=== PATIENT | male | born 1960 | race Caucasian/White ===

== ENCOUNTER → 2023-08-10 06:17 | Day surgery (SDC) | payer OTHER, SELFPAY ==
[2023-08-10 07:18] LABS: Glucose - Point of Care 105 mg/dl (70-99)
== END ==
LOC: GI 06:17
PROVIDERS: ATTENDING PHYSICIAN Specialist
DX: Z12.11 Encounter for screening for malignant neoplasm of colon (principal); Z86.010 Personal history of colon polyps; Z80.0 Family history of malignant neoplasm of digestive organs; D12.2 Benign neoplasm of ascending colon; K63.5 Polyp of colon
CPT/HCPCS: 45385; 88305; 82962

== ENCOUNTER 2025-03-10 18:49 | Inpatient (IN) | payer OTHER, MEDICARE, SELFPAY ==
[2025-03-10] VITALS (7 sets, daily range): BP systolic 138–191; BP diastolic 74–115
[2025-03-10 14:09] LABS: Hematocrit 42.1 % (39.0-52.0); Hemoglobin 13.4 g/dL (13.0-18.0); Mean Corp Hgb Conc. 31.8 g/dL (33.0-37.0); Mean Corpuscular Volume 89.2 fL (80.0-94.0); Nucleated Red Blood Cells % 0 % (-); Platelet Count 125 10^3/uL (130-400); Red Cell Dist. Width 14.0 % (11.5-14.5)
[2025-03-10 14:26] LABS: COVID-19 Antigen Negative (Negative)
[2025-03-10 14:33] LABS: ALT (SGPT) 17 U/L (0-50); AST (SGOT) 14 U/L (17-59); Albumin 3.7 g/dl (3.5-5.0); Alkaline Phosphatase 64 U/L (38-126); Blood Urea Nitrogen 68 mg/dl (9-20); Calcium 8.4 mg/dl (8.4-10.2); Carbon Dioxide 18 mmol/L (22-30); Chloride 108 mmol/L (98-107); Glucose 135 mg/dl (70-99); Lipase 173 U/L (23-300); Potassium 5.1 mmol/L (3.5-5.1); Sodium 136 mmol/L (135-145); Total Protein 6.3 g/dl (6.3-8.2); eGFR 8.08
--- NOTE | 2025-03-10 15:35 | ED.GENMED ---
History of Present Illness
<Kareem Berry PA-C - Last Filed: 03/10/25 21:22>
General
Chief Complaint: Male Genito-Urinary Symptoms
Source: patient
Time Seen by Provider: 03/10/25 15:16
History of Present Illness
History of Present Illness:
64-year-old male with past medical history of msk-dekchhz-gxwodorxe diabetes presenting to the emergency department for evaluation after he has been experiencing some right sided flank pain for the last 3 days, today the pain is overall unchanged
but continuous, no relief with a few doses of Motrin and accompanied with no urination since 7 PM last night despite normal p.o. intake to both solids and liquids. Patient notes that a couple of days prior to gi he had a mild URI which
all of the symptoms seem to be resolved now. No reported fevers, chills, rigors, urinary frequency/urgency/dysuria or hematuria, bowel changes, chest pain or shortness of breath. He denies any history of similar. No changes to medications
recently. Social history noncontributory although noted for occasional alcohol use
Past History
<Kareem Berry PA-C - Last Filed: 03/10/25 21:22>
Past History
ED Past Medical History: NIDDM and Other (Kidney stone)
ED Past Surgical History: Other (hernia repair)
Social History
Tobacco: Non-smoker
Alcohol: Occasional
Drug: None
Personal:
Living: with family
Review of Systems
<Kareem Berry PA-C - Last Filed: 03/10/25 21:22>
Review of Systems
All Other Systems: ROS reviewed and negative except as documented in HPI and ROS
Phy Exam
<Kareem Berry PA-C - Last Filed: 03/10/25 21:22>
Physical Exam
Physical Exam:
GENERAL: Alert , in no apparent distress
HEAD: Normocephalic atraumatic
EYE: clear conjunctiva
NECK: Supple
ENT: o/p clr, mmm.
CARDIAC: Regular rate and rhythm .
LUNGS: Clear breath sounds bilaterally, no acute respiratory distress, no wheezes/rales/rhonchi
ABDOMEN: Soft, without focal tenderness, no r/g, no cvat. no suprapubic ttp or fullness
NEUROLOGICAL: Alert and oriented
SKIN: Warm and dry, skin intact.
MUSCULOSKELETAL: No edema, well perfused.
PSYCH: Normal and appropriate interaction.
Scores
<Kareem Berry PA-C - Last Filed: 03/10/25 21:22>
Heart Failure Risk
Heart Failure Risk Score: Not Applicable
Heart Score for Chest Pain Patients
STEMI patient?: Not applicable
Withdrawal Assessment of Alcohol
Withdrawal Assessment Completed?: Not applicable
Course
<Kareem Berry PA-C - Last Filed: 03/10/25 21:22>
Orders/Labs/Results
Orders:
Orders
03/10/25 13:48
COVID-19 Antigen Urgent
Source: Nasal Swab
Complete Blood Count/With Diff Urgent
Comprehensive Metabolic Panel Urgent
Creatine Phosphokinase Urgent
Comment: ADD ON
Lipase Urgent
Influenza A+B Rapid Molecular Urgent
PAUL Source: Nasal Swab
Specimen Description:
03/10/25 15:33
Urinalysis Reflex To Culture Urgent
0.9% Sodium Chloride 1000 ml [Nss] 1,000 ml IV BOLUS
US Kidneys [US Renal Only W/O Bladder] Urgent
Comment:
Reason For Exam: renal failure
03/10/25 15:34
Add On- LAB Urgent
Tests Added?: cpk
Electrocardiogram (*1) Urgent
Reason for Study: Other
Other Reason for Exam: renal failure
EKG- Treatment ONCE
CR Chest - 2 Views Urgent
Comment:
Reason For Exam: recent URI, renal failure
03/10/25 17:34
Urine - Eosinophils [Body Fluid for Eosinophils] Urgent
Fluid Source: Urine
Urine Creatinine Urgent
Urine Sodium Urgent
03/10/25 17:55
NEPHROLOGY CONSULT Urgent
Consulting Provider: Madonna Diego
Was physician already notified: Yes
Bosch Catheter [Catheter- Indwelling] As Directed
Reason for insertion: Acute Kidney Injury
Discontinue Date/Time: 03/13/25 0600
Intake/ Output As Directed
Frequency: Per unit guidelines
Comment: strict intake and output monitoring
Weight As Directed
Frequency: Daily
03/10/25 17:56
Add On- LAB Urgent
Tests Added?: CK
Admit/Transfer Patient As Directed
Co-Sign Provider:
Level of Care: Inpatient admission
Assign to:: IMU- Intermediate Care
Physician / Group: chong kebede
Diagnosis: BRITTANY,Anuria
Reason for Hospitalization: BRITTANY,Anuria
Expected length of stay greater than two midnights?: Yes
ELOS- Estimated Length of Stay in days: 3
I certify the patient meets the requirements for IP care: Yes
03/10/25 17:57
PRN Pain Medication Management As Directed
May give lesser potent ordered pain med per pt: Yes
preference::
Protocol:: Medication orders for pain may be administered in a
manner that supports deferring to patient preference
when the pt is:
- Requesting an ordered lesser potent pain medication.
Least to most potent pain medications are defined
as: acetaminophen < NSAID < tramadol < opioids
(morphine, oxycodone, hydromorphone).
- Requesting a lesser dose of the same medication IF
ORDERED.
- Requesting a less intrusive route of administration
if both routes are prescribed by the provider (PO <
IV).
03/10/25 17:58
Code Status As Directed
Resuscitation Status: Full Code
03/10/25 18:00
Abdomen/Pelvis wo Contrast CT [CT Abd/pelvis Wo Iv Cont] Urgent
Comment: without oral and PO contrast
Reason For Exam: right flank pain
0.45% Sodium Chloride 1000 ml [0.45%NaCl] 1,000 ml Sodium Bicarbonate 75 meq IV 80 mls/hr
03/10/25 18:07
PRN Pain Medication Management As Directed
May give lesser potent ordered pain med per pt: Yes
preference::
Protocol:: Medication orders for pain may be administered in a
manner that supports deferring to patient preference
when the pt is:
- Requesting an ordered lesser potent pain medication.
Least to most potent pain medications are defined
as: acetaminophen < NSAID < tramadol < opioids
(morphine, oxycodone, hydromorphone).
- Requesting a lesser dose of the same medication IF
ORDERED.
- Requesting a less intrusive route of administration
if both routes are prescribed by the provider (PO <
IV).
03/10/25 23:00
BMP [Basic Metabolic Panel] Routine
03/13/25 11:00
DC Protocol for Telemetry ONCE
Abnormal Lab Results
03/10/25
13:48
MCHC 31.8 L g/dL
(33.0-37.0)
Plt Count 125 L 10^3/uL
(130-400)
Abs Immat Gran (auto) 0.1 H 10^3/uL
(0-0.05)
Absolute Lymphs (auto) 0.8 L 10^3/uL
(1.2-3.4)
Absolute Monos (auto) 0.7 H 10^3/uL
(0.1-0.6)
Immature Gran % 0.6 H %
(0-0.5)
Neutrophils % 77.9 H %
(42.2-75.2)
Lymphocytes % 10.0 L %
(20.5-51.1)
Chloride 108 H mmol/L
(98-107)
Carbon Dioxide 18 L mmol/L
(22-30)
BUN 68 H mg/dl
(9-20)
Creatinine 7.0 H* mg/dL
(0.7-1.3)
Glucose 135 H mg/dl
(70-99)
AST 14 L U/L
(17-59)
03/10/25 13:48
03/10/25 13:48
Vital Signs
Initial and Last Documented VS:
Initial Vital Signs
Temp Pulse Resp BP Pulse Ox
97.8 F 76 20 149/88 99
03/10/25 13:38 03/10/25 13:38 03/10/25 13:38 03/10/25 13:38 03/10/25 13:38
Last Documented Vital Signs
Temp Pulse Resp BP Pulse Ox
97.8 F 70 22 168/85 99
03/10/25 13:38 03/10/25 18:00 03/10/25 18:00 03/10/25 18:00 03/10/25 17:45
<Lea Bosch MD - Last Filed: 03/10/25 17:29>
Orders/Labs/Results
Orders:
Orders
03/10/25 13:48
COVID-19 Antigen Urgent
Source: Nasal Swab
Complete Blood Count/With Diff Urgent
Comprehensive Metabolic Panel Urgent
Creatine Phosphokinase Urgent
Comment: ADD ON
Lipase Urgent
Influenza A+B Rapid Molecular Urgent
PAUL Source: Nasal Swab
Specimen Description:
03/10/25 15:33
Urinalysis Reflex To Culture Urgent
0.9% Sodium Chloride 1000 ml [Nss] 1,000 ml IV BOLUS
US Kidneys [US Renal Only W/O Bladder] Urgent
Comment:
Reason For Exam: renal failure
03/10/25 15:34
Add On- LAB Urgent
Tests Added?: cpk
Electrocardiogram (*1) Urgent
Reason for Study: Other
Other Reason for Exam: renal failure
EKG- Treatment ONCE
CR Chest - 2 Views Urgent
Comment:
Reason For Exam: recent URI, renal failure
03/10/25 17:34
Urine - Eosinophils [Body Fluid for Eosinophils] Urgent
Fluid Source: Urine
Urine Creatinine Urgent
Urine Sodium Urgent
03/10/25 17:55
NEPHROLOGY CONSULT Urgent
Consulting Provider: Madonna Diego
Was physician already notified: Yes
Bosch Catheter [Catheter- Indwelling] As Directed
Reason for insertion: Acute Kidney Injury
Discontinue Date/Time: 03/13/25 0600
Intake/ Output As Directed
Frequency: Per unit guidelines
Comment: strict intake and output monitoring
Weight As Directed
Frequency: Daily
03/10/25 17:56
Add On- LAB Urgent
Tests Added?: CK
Admit/Transfer Patient As Directed
Co-Sign Provider:
Level of Care: Inpatient admission
Assign to:: IMU- Intermediate Care
Physician / Group: chong kebede
Diagnosis: BRITTANY,Anuria
Reason for Hospitalization: BRITTANY,Anuria
Expected length of stay greater than two midnights?: Yes
ELOS- Estimated Length of Stay in days: 3
I certify the patient meets the requirements for IP care: Yes
03/10/25 17:57
PRN Pain Medication Management As Directed
May give lesser potent ordered pain med per pt: Yes
preference::
Protocol:: Medication orders for pain may be administered in a
manner that supports deferring to patient preference
when the pt is:
- Requesting an ordered lesser potent pain medication.
Least to most potent pain medications are defined
as: acetaminophen < NSAID < tramadol < opioids
(morphine, oxycodone, hydromorphone).
- Requesting a lesser dose of the same medication IF
ORDERED.
- Requesting a less intrusive route of administration
if both routes are prescribed by the provider (PO <
IV).
03/10/25 17:58
Code Status As Directed
Resuscitation Status: Full Code
03/10/25 18:00
Abdomen/Pelvis wo Contrast CT [CT Abd/pelvis Wo Iv Cont] Urgent
Comment: without oral and PO contrast
Reason For Exam: right flank pain
0.45% Sodium Chloride 1000 ml [0.45%NaCl] 1,000 ml Sodium Bicarbonate 75 meq IV 80 mls/hr
03/10/25 18:07
PRN Pain Medication Management As Directed
May give lesser potent ordered pain med per pt: Yes
preference::
Protocol:: Medication orders for pain may be administered in a
manner that supports deferring to patient preference
when the pt is:
- Requesting an ordered lesser potent pain medication.
Least to most potent pain medications are defined
as: acetaminophen < NSAID < tramadol < opioids
(morphine, oxycodone, hydromorphone).
- Requesting a lesser dose of the same medication IF
ORDERED.
- Requesting a less intrusive route of administration
if both routes are prescribed by the provider (PO <
IV).
03/10/25 23:00
BMP [Basic Metabolic Panel] Routine
03/13/25 11:00
DC Protocol for Telemetry ONCE
Abnormal Lab Results
03/10/25
13:48
MCHC 31.8 L g/dL
(33.0-37.0)
Plt Count 125 L 10^3/uL
(130-400)
Abs Immat Gran (auto) 0.1 H 10^3/uL
(0-0.05)
Absolute Lymphs (auto) 0.8 L 10^3/uL
(1.2-3.4)
Absolute Monos (auto) 0.7 H 10^3/uL
(0.1-0.6)
Immature Gran % 0.6 H %
(0-0.5)
Neutrophils % 77.9 H %
(42.2-75.2)
Lymphocytes % 10.0 L %
(20.5-51.1)
Chloride 108 H mmol/L
(98-107)
Carbon Dioxide 18 L mmol/L
(22-30)
BUN 68 H mg/dl
(9-20)
Creatinine 7.0 H* mg/dL
(0.7-1.3)
Glucose 135 H mg/dl
(70-99)
AST 14 L U/L
(17-59)
03/10/25 13:48
03/10/25 13:48
Vital Signs
Initial and Last Documented VS:
Initial Vital Signs
Temp Pulse Resp BP Pulse Ox
97.8 F 76 20 149/88 99
03/10/25 13:38 03/10/25 13:38 03/10/25 13:38 03/10/25 13:38 03/10/25 13:38
Last Documented Vital Signs
Temp Pulse Resp BP Pulse Ox
97.8 F 70 22 168/85 99
03/10/25 13:38 03/10/25 18:00 03/10/25 18:00 03/10/25 18:00 03/10/25 17:45
<Kareem Berry PA-C - Last Filed: 03/10/25 21:22>
MDM/Problems Addressed
Differential Diagnosis Includes:
Urinary Retention
UTI
Prostatitis
BRITTANY
Viral syndrome
Nephritis
Obstructive uropathy/kidney stone
Medication side-effects
MDM/Problems Addressed:
64-year-old male presenting to the ER for evaluation of right sided flank pain and decreased urinary output since 7 PM last night despite normal p.o. intake. Labs were drawn on arrival with the hematology being unremarkable however patient's
chemistry significantly abnormal with a BUN of 68 and a creatinine of 7. Bicarb 18 which is likely from the acute uremia. Patient is overall very well-appearing and in no acute distress. Given his reported pain I do have a considerable concern
for obstructive uropathy. Bedside bladder scan done multiple times shows 0 mL of urine within the urinary bladder. Will order stat ultrasound of the kidneys to assess for hydronephrosis. Additional labs ordered. Plan for admission.
Chronic conditions affecting care: DM
<Kareem Berry PA-C - Last Filed: 03/10/25 21:22>
*Radiology
Radiology exam reviewed: radiology read reviewed
*Pulse Oximetry
SaO2: 99
Oxygen Mode of Delivery: Room air
Patient hypoxic: no
*Critical Care Note
Total Time (30-74mins, 75-104mins- exclusive of procedures): Not Applicable
Data Reviewed
Review of Other/Old Records Reveals: Labs and Records
<Kareem Berry PA-C - Last Filed: 03/10/25 21:22>
Patient Management
Discussion with other providers: Hospitalist and Clinical Education Consultant
Escalation/DeEscalation of care consider admission/obs:
Hospitalist team accepts for admission. Nephrology team aware.
ED Attending Note
<Kareem Berry PA-C - Last Filed: 03/10/25 21:22>
-
Portions of this chart may have been created with voice recognition software.� Occasional wrong word or��sound alike� substitutions may have occurred due to the inherent limitations of voice recognition software.
<Lea Bosch MD - Last Filed: 03/10/25 17:29>
ED Attending Note
Patient seen and examined by attending physician: Yes
I performed the substantive portion of visit, reviewed & personally made and approve the management plan that is documented in note by myself or TREMAYNE.: Yes
ED Attending Note:
64-year-old male with complaints of pain in the right flank radiating to the right lower quadrant on and off and 'waves' for the last 3 days. He also notes that he has had decreased urination and in fact has not urinated since 7 PM last night. He
is still tolerating eating and drinking without nausea, vomiting, fever, chills, chest pain, shortness of breath, dizziness. He denies heavy nonsteroidal use, or other potential toxins. He has been on his fark [employer] for at least 2 years. He does
note that he has been drinking copious amounts of green tea lately. He denies dysuria, hematuria. Patient noted to be in new onset renal failure, questionable medication effect versus other etiology. No hydronephrosis noted, no obstructing stone
noted on ultrasound. Bladder scan does not result in urine output. IV fluids initiated, renal consult, admission to hospitalist, close monitoring.
Discharge Plan
Departure
Patient Disposition: Admit
Date of Disposition: 03/10/25
Time of Disposition: 17:23
Presentation/result/management discussed w/ accepting MD/DO: Hospitalist
Discharge Problem:
Acute renal failure
Interventions
Interventions:
*Risk Screen - Suicide Last Done: 03/10/25 13:38
*General Assessment Last Done: 03/10/25 13:38
*Neglect/Abuse Screening Last Done: 03/10/25 13:38
*ED COVID-19 Vaccine History Last Done: 03/10/25 16:00
*ED Influenza Vaccine History Last Done: 03/10/25 16:00
[facility] Fall Risk Assessment Tool Last Done: 03/10/25 16:06
BM-Zrhqls-Qzpwmyvsap Assessment Last Done: 03/10/25 16:00
ED-Male Genitourinary Assessment Last Done: 03/10/25 16:00
[2025-03-10] MEDS: NSS 1000 IV (16:10)
--- NOTE | 2025-03-10 18:01 | HPS.HSE ---
Family Physician
-
Family Physician: Vaughn Eduardo
Chief Complaint
-
Right flank pain
History of Present Illness
64-year-old male with pmhx of pac-qmrzbkf-claxswhca diabetes mellitus, nephrolithiasis came to the hospital with right-sided flank pain and feeling fatigued from past few days. Per patient, he started with cold-like symptoms few days ago and also
had right-sided flank pain and has been taking ibuprofen intermittently. He is also on farxIGA which he reported he is taking for his diabetes for at least past 2 years. Started yesterday 7 PM, he started noted that he he has not urinated since
then despite taking normal p.o. intake. Denies any dysuria, urgency, hematuria. Upon labs in the ED patient creatinine significantly elevated. Currently he denies any chest pain, shortness of breath. Denies any nausea, vomiting.
Medical History
Past Medical History
Past Medical History: Reports NIDDM and Other (Nephrolithiasis)
Past Surgical History: Reports Other (Hernia repair)
Social History
Tobacco: Non-smoker
Alcohol: Occasional
Family History
Family History: Not pertinent
Allergies / Home Medications
Allergies reflects when Allergies were last updated in [facility].
Home Medications with original date entered in [facility]
Allergy/Medication List:
Allergies
Allergy/AdvReac Type Severity Reaction Status Date / Time
No Known Allergies Allergy Verified 03/10/25 13:43
Home Medications
aspirin 81 mg tablet,delayed release 81 mg PO 03/10/25
cholecalciferol (vitamin D3) 25 mcg (1,000 unit) tablet (Vitamin D3) 25 mcg PO DAILY 03/10/25
dapagliflozin propanediol 5 mg tablet (Farxiga) 5 mg PO DAILY 03/10/25
ibuprofen 400 mg tablet 400 mg PO DAILYPRN PRN mild pain 03/10/25
vitamin E 268 mg (400 unit) capsule 268 mg PO DAILY 03/10/25
Review of Systems
-
History Source: Patient
A 12 point ROS was completed and negative except as noted: Yes
: Reports Flank Pain
Physical Exam
Vital Signs
Vital Signs
Temp Pulse Resp BP Pulse Ox
97.8 F 67 19 153/74 99
03/10/25 13:38 03/10/25 17:30 03/10/25 17:30 03/10/25 17:14 03/10/25 17:30
Physical Exam
General: No Apparent Distress and Comfortable
HEENT: NormoCephalic and Anicteric
Respiratory: Clear and Non Labored Respirations; No Wheezes
Cardiac: S1/S2 and Regular Rhythm
Breast: Deferred by me
GI: Soft, Non Tender and Non Distended
Genito-urinary: Other (right flank pain)
Musculoskeletal: No Edema
Neuro: Awake, Alert, Oriented and AO x 3
Psych: Calm and Intact Judgment/Insight
Laboratory Results
-
03/10/25 13:48
03/10/25 13:48
Laboratory Results
Total Bilirubin 0.4 mg/dl (0.2-1.3) 03/10/25 13:48
AST 14 U/L (17-59) L 03/10/25 13:48
ALT 17 U/L (0-50) 03/10/25 13:48
Alkaline Phosphatase 64 U/L (38-126) 03/10/25 13:48
Lipase 173 U/L (23-300) 03/10/25 13:48
Data Reviewed
-
Ultrasound: Report Reviewed by me, Discussed with Patient and Discussed with Family
Lab Data: Labs Reviewed by me, Discussed with Physician, Discussed with Patient and Discussed with Family
Impression/Plan
-
Acute kidney injury, unclear reason as could be medication related from farxiga and ibuprofen, recent URI
Admission creatinine 7
Metabolic acidosis secondary to acute kidney injury
Unknown baseline if has CKD
Discussed with nephrology, start 0.45 saline with bicarb
Nephrology consulted
Administer Bosch catheter
UA with urine culture, urine lites, urine eos
Admit to IMU
Check CT abdomen/pelvis non con given pain
Renal ultrasound with small right nephrolithiasis, intrarenal
History of diabetes mellitus
Hold Farxiga
A1c, Accu-Chek, sliding scale
Thrombocytopenia
Does appear to have history of it
Monitor
DVT prophylaxis
SCDs
Full code
Total Critical Care Time__62___ minutes. I was immediately available to the patient and staff. I personally examined, reviewed labs, diagnostic images/reports, interpretations, treatment plans, discussed patient care with other providers and
family or caregivers (if patient is unable to make decisions), entered orders as appropriate and documented the medical record.
[2025-03-10] MEDS: SODIUM BICARBONATE 1075 MEQ IV (19:21)
--- NOTE | 2025-03-10 22:41 | PTCARENOTE ---
Patient received from ED. Report received from Magali BARTON. Pt ambulated to the bed with assistance with tubing. Pt AAOx3, pleasant. A-febrile. Bosch intact, however no output noted on arrival. Pt c/o pain to urethra, PRN Tylenol administered see JUN.
NSR w/ PVCs on the monitor. Room air, 97%. 0.45% NSS with bicarb infusing @80ml/hr. Abdomen is round and distended, bowel sounds present. No edema. Pt significant other staying throughout the night. Educated on the use of call weinstein, within reach.
[2025-03-10] MEDS: TYLENOL 650 MG PO (23:09)
[2025-03-10 23:37] LABS: Glucose - Point of Care 104 mg/dl (70-99)
[2025-03-10 23:59] LABS: Blood Urea Nitrogen 74 mg/dl (9-20); Calcium 8.0 mg/dl (8.4-10.2); Carbon Dioxide 19 mmol/L (22-30); Chloride 109 mmol/L (98-107); Glucose 104 mg/dl (70-99); Potassium 5.6 mmol/L (3.5-5.1); Sodium 136 mmol/L (135-145); eGFR 6.99
[2025-03-11] VITALS (19 sets, daily range): BP systolic 134–170; BP diastolic 72–113
--- NOTE | 2025-03-11 01:01 | W.PN.UPDATE ---
Update Note
Progress Note Update
hyperkalemia
--- NOTE | 2025-03-11 01:30 | PTCARENOTE ---
Patient continues to be anuric. No output noted in the hines catheter bag. 0000 lab work, K 5.6. Dr. Diego notified via TT. SRUTHI Johnson put in order for Lokelma stat. Pt pain improved w/ dose of PRN Tylenol.
[2025-03-11] MEDS: LOKELMA 5 GRAM PO ×2 (01:47→07:38)
[2025-03-11 05:35] LABS: Hematocrit 39.6 % (39.0-52.0); Hemoglobin 12.9 g/dL (13.0-18.0); Mean Corp Hgb Conc. 32.6 g/dL (33.0-37.0); Mean Corpuscular Volume 89.6 fL (80.0-94.0); Nucleated Red Blood Cells % 0 % (-); Platelet Count 109 10^3/uL (130-400); Red Cell Dist. Width 13.5 % (11.5-14.5)
[2025-03-11 06:04] LABS: ALT (SGPT) 14 U/L (0-50); AST (SGOT) 11 U/L (17-59); Albumin 3.2 g/dl (3.5-5.0); Alkaline Phosphatase 59 U/L (38-126); Blood Urea Nitrogen 77 mg/dl (9-20); Calcium 8.1 mg/dl (8.4-10.2); Carbon Dioxide 19 mmol/L (22-30); Chloride 108 mmol/L (98-107); Glucose 103 mg/dl (70-99); Potassium 5.9 mmol/L (3.5-5.1); Sodium 136 mmol/L (135-145); Total Protein 5.7 g/dl (6.3-8.2); eGFR 6.06
--- NOTE | 2025-03-11 06:30 | PTCARENOTE ---
Patient continues to be anuric. No output from hines catheter. AM K 5.9. Dr. Diego notified via TT, SRUTHI mckeon, new orders for Lokelma. Nephrology consulted.
--- NOTE | 2025-03-11 06:57 | W.PN.UPDATE ---
Update Note
Progress Note Update
K level is 5.9 this am previously 5.6. Patient received one dose of lokelma at night, and nother dose of lokelma this am as recommended by nephrology.
[2025-03-11 07:42] LABS: Glucose - Point of Care 106 mg/dl (70-99)
[2025-03-11 08:04] LABS: Glycohemoglobin (HgbA1c) 6.8 % (4.0-5.9)
--- NOTE | 2025-03-11 08:45 | W.CON.NEPH ---
Consultation
-
Date/Time Consultation Requested: 03/11/2025 7 AM
Date/Time Consultation Performed: 03/11/2025 8 AM
Requesting Provider: Dr. العلي
Performing Provider: Dr. Arriaza
Reason for Consultation: BRITTANY
Medical History
-
Chief Complaint: anuria
History of Present Illness:
This is a 64-year-old gentleman who has diabetes mellitus type 2 on Farxiga therapy low-dose otherwise stable over time. He also has a remote history of nephrolithiasis though states it has been many many years since he has had an issue with his
stones. He does nothing special for this history of nephrolithiasis currently. Recently did have upper respiratory syndrome for a few days and developed some right sided flank pain and began taking some ibuprofen for this. On March 09 at 7 PM
he states that he urinated but then since then has not had any urine output. He came to the emergency room as a result. CT scan shows bilateral hydronephrosis with obstructive bilateral ureteral stones. Bosch catheter was placed but he has still
been an uric. Creatinine was noted to be elevated over 7 now at 8 with a potassium low rising at 5.9 with metabolic acidosis.
Past Medical History
Diabetes mellitus type 2
Nephrolithiasis
Hernia repair
Social History
Tobacco: Non-Smoker
Alcohol: Occasional
Family History
Family History: Not Pertinent
Allergies / Home Medications
Allergy/AdvReac Type Severity Reaction Status Date / Time
No Known Allergies Allergy Verified 03/10/25 13:43
�Medication �Instructions �Recorded �Confirmed �Type
aspirin 81 mg tablet,delayed 81 mg PO WETH03/10/25 03/10/25 History
release
cholecalciferol (vitamin D3) 25 25 mcg PO DAILY 03/10/25 03/10/25 History
mcg (1,000 unit) tablet (Vitamin
D3)
dapagliflozin propanediol 5 mg 5 mg PO DAILY 03/10/25 03/10/25 History
tablet (Farxiga)
ibuprofen 400 mg tablet 400 mg PO DAILYPRN PRN mild pain 03/10/25 03/10/25 History
vitamin E 268 mg (400 unit) capsule 268 mg PO DAILY 03/10/25 03/10/25 History
Review of Systems
-
Mild dysuria when he produces urine
All other systems: Negative unless noted
Physical Exam
Vital Signs
Vital Signs
Temp Pulse Resp BP Pulse Ox
98.4 F 67 20 137/74 96
03/11/25 07:00 03/11/25 04:00 03/11/25 04:00 03/11/25 04:00 03/11/25 04:00
Lab Results
WBC 7.8 10^3/uL (4.8-10.8) 03/11/25 05:21
RBC 4.42 10^6/uL (4.70-6.10) L 03/11/25 05:21
Hgb 12.9 g/dL (13.0-18.0) L 03/11/25 05:21
Hct 39.6 % (39.0-52.0) 03/11/25 05:21
Plt Count 109 10^3/uL (130-400) L 03/11/25 05:21
Sodium 136 mmol/L (135-145) 03/11/25 05:21
Potassium 5.9 mmol/L (3.5-5.1) H 03/11/25 05:21
Chloride 108 mmol/L (98-107) H 03/11/25 05:21
Carbon Dioxide 19 mmol/L (22-30) L 03/11/25 05:21
BUN 77 mg/dl (9-20) H 03/11/25 05:21
Creatinine 8.9 mg/dL (0.7-1.3) H* 03/11/25 05:21
eGFR 6.06 03/11/25 05:21
Glucose 103 mg/dl (70-99) H 03/11/25 05:21
Calcium 8.1 mg/dl (8.4-10.2) L 03/11/25 05:21
Albumin 3.2 g/dl (3.5-5.0) L 03/11/25 05:21
Baseline creatinine 2.[address] abdomen pelvis without contrast 03/10/2025
IMPRESSION:
Approximate 3 mm calculi in the proximal right and proximal left ureter is with mild bilateral renal collecting system dilatation and bilateral perinephric stranding.
Additional nonurgent findings, as detailed above.
Physical Exam
Patient is awake alert oriented and in no distress. Mood and affect were pleasant, insight and judgment were good. Pupils are equal round and reactive to light, extraocular movements are intact, sclera were anicteric. Hearing was normal, ears and
nose are intact. Oropharynx was clear. Neck was supple with trachea midline and no thyromegaly. Heart was regular rate and rhythm without rubs. Lower extremities without edema. Lungs were clear to auscultation bilaterally and with normal
excursion. Abdomen was soft, nontender, with normal active bowel sounds, and no hepatosplenomegaly. Skin was without rash and with normal turgor.
Data Reviewed
-
CT Scan: Report Reviewed by me
Medical Tests (Nuc Med, Echo etc): Image Personally Visualized and interpreted (EKG 04-02 by my reading normal sinus rhythm)
Labs: Labs Reviewed by me
Old Records: Reviewed
Assessment/Plan
-
Assessment
BRITTANY
Bilateral obstructive uropathy
Nephrolithiasis
Metabolic acidosis
Hyperkalemia
Diabetes mellitus type 2
Plan
Discussed with urology
Plan is for OR today with bilateral stenting
Manage potassium medically at this time
Okay to continue IV fluids
N.p.o.
Follow BMP
Discussed with patient and
[2025-03-11] MEDS: DILAUDID 0.5 MG IV ×2 (09:01→13:57)
[2025-03-11] MEDS: SODIUM BICARBONATE 1075 MEQ IV ×2 (09:05→22:30)
--- NOTE | 2025-03-11 09:09 | CON.MD ---
Consultation - Medical
-
see dictated note
please note- i was called about this patient and consult thus far involves review of records/speaking to [facility] and interviewing pt by phone
remote hx of stones
several day hx of flank pain
presented to pain and anuria/renal failure
ct done last pm showed bilateral ureteral stones- minimal hydro
pt's cr rising- minimal UO
plan for emergent electrolyte stabilization and OR rony for stents
risks, benefits, alternatives reviewed with pt by phone- will perform exam in pre-op holding
Consultation
-
Date/Time Consultation Requested: 03/11/25 at 815 am
Date/Time Consultation Performed: 03/11/25 at 8:20 am
Requesting Provider: Dr العلي
Performing Provider: Dr Ramirez
Reason for Consultation: stone and renal failure
[2025-03-11] MEDS: VITAMIN D3 (cholecalciferol) PO (09:49)
[2025-03-11] MEDS: ROCEPHIN 1000 MG IV (09:53)
[2025-03-11] MEDS: STERILE WATER FOR INJECTION 10 ML IV (09:53)
[2025-03-11 10:01] LABS: Urine Character Slightly Cloudy (Clear)
[2025-03-11 10:17] LABS: Urine Red Blood Cell 60-70 /HPF (0-2); Urine Squamous Cell 0-2 /LPF (Few)
[2025-03-11 10:31] LABS: Blood Urea Nitrogen 77 mg/dl (9-20); Calcium 8.2 mg/dl (8.4-10.2); Carbon Dioxide 18 mmol/L (22-30); Chloride 110 mmol/L (98-107); Glucose 96 mg/dl (70-99); Potassium 5.8 mmol/L (3.5-5.1); Sodium 135 mmol/L (135-145); eGFR 6.06
[2025-03-11 11:02] LABS: Body Fluid for Eosinophils No Eosinophils seen
--- NOTE | 2025-03-11 11:11 | W.SUR.PREOP ---
Pre-Operative Surgical Note
-
I have examined this patient prior to the performance of the scheduled procedure.
The patient's condition is unchanged from the time of the current History and
Physical and the patient is able to undergo the scheduled procedure.
again reviewed risks,benefits, alternatives and potential outcomes
--- NOTE | 2025-03-11 11:17 | PTCARENOTE ---
pt aaox3. states 5/10 pain in right flank. md made aware. pain med ordered and given. hines in place now draining pink tinge urine. reviewed plan of care with pt and family at bedside.
--- NOTE | 2025-03-11 11:20 | CM ---
I.A: Completed By IRIS Osborne. Patient speaks Malay, but is primarily speak Maldivian
Patient lives with his akhil a 2 STH with 3 STI, 14 STI. No DME, no VN/PT, No STR.
PCP: Vaughn Eduardo
Pharmacy: [facility]
Patient has transport home.
[2025-03-11 11:33] LABS: Glucose - Point of Care 87 mg/dl (70-99)
--- NOTE | 2025-03-11 12:33 | W.IMMPOSTOP ---
Surgical Immed Post Op Note
-
Primary Surgeon:
silas
Assisting Surgeon:
Pre-op Diagnosis:
bilateral ureteral obstruction/ARF
Post-op Diagnosis:
same
Procedure Performed:
cysto/bilateral retrogrades/bilateral stent placement
Anesthesia Type:
gen
Specimen / Cultures:
none
Estimated Blood Loss:
2cc
Complications:
none
Operative Findings:
on retrogrades- obstructing stone in right prox and left distal ureter
stents and hines placed
+ UO at end of case
continue hines/hand irrigation for hematuria/trend renal function
[2025-03-11 12:47] LABS: Glucose - Point of Care 82 mg/dl (70-99)
[2025-03-11 13:37] LABS: Blood Urea Nitrogen 77 mg/dl (9-20); Calcium 7.8 mg/dl (8.4-10.2); Carbon Dioxide 19 mmol/L (22-30); Chloride 107 mmol/L (98-107); Estimated Creatinine Clearance 11 ml/min; Glucose 90 mg/dl (70-99); Potassium 5.5 mmol/L (3.5-5.1); Sodium 136 mmol/L (135-145); eGFR 6.79
--- NOTE | 2025-03-11 13:45 | W.PN.HOSP.TC ---
Today's Communication/Plan
-
Monitor vital signs see plan
CT noted, discussed with urology urgently and plan for OR today for stenting
Now made some urine, urinalysis consistent with possible infection. Noted perinephric stranding on CT scan. Start ceftriaxone
Follow urine culture
repeat labs later today
lokelma
Assessment / Plan
Assessment / Plan
General: No Apparent Distress and Comfortable
HEENT: NormoCephalic and Anicteric
Respiratory: Clear and Non Labored Respirations
Cardiac: S1/S2 and Regular Rhythm
GI: Soft, Non Tender and Non Distended
Genito-urinary: Other (right flank pain),+ hines
Neuro: Awake, Alert, Oriented and AO x 3
Psych: Calm and Intact Judgment/Insight
Acute kidney injury 2/2 obstructing renal stone
Admission creatinine 7
Metabolic acidosis secondary to acute kidney injury with hyperkalemia. Status post Lokelma, insulin
Unknown baseline if has CKD
Nephrology following, on bicarb drip
CT abdomen/pelvics with renal stone. Discussed with urology. For urgent OR today for stent placement given anuria
Maintain Hines
Now with some urine output, urinalysis consistent with pyuria. Urine culture pending. Start ceftriaxone pending urine culture given perinephric stranding on imaging
Renal ultrasound with small right nephrolithiasis, intrarenal
History of diabetes mellitus
Hold Farxiga
A1c 6.8, Accu-Chek, sliding scale
Hypertension, no prior history
Hydralazine as needed, monitor
Thrombocytopenia
Does appear to have history of it
Monitor
DVT prophylaxis
SCDs
Full code
I spent a total of 52 minutes with the patient or on the floor. More than 50% of this time involved counseling and coordination of care.
Anticipated Discharge: > 48 hours
Subjective/Interval History
-
Date of Service: March 11, 2025
Some right flank pain
Objective Data
-
Labs:
Laboratory Results
03/11/25 03/11/25 03/11/25
05:21 09:33 12:59
WBC 7.8
Hgb 12.9 L
Hct 39.6
Plt Count 109 L
Sodium 136 135 136
Potassium 5.9 H 5.8 H 5.5 H
Chloride 108 H 110 H 107
Carbon Dioxide 19 L 18 L 19 L
BUN 77 H 77 H 77 H
Creatinine 8.9 H* 8.9 H* 8.1 H*
Glucose 103 H 96 90
Calcium 8.1 L 8.2 L 7.8 L
Total Bilirubin 0.5
AST 11 L
ALT 14
Alkaline Phosphatase 59
Vital Signs:
Vital Signs
Temp Pulse Resp BP Pulse Ox
97.2 F 71 18 163/83 100
03/11/25 13:17 03/11/25 13:15 03/11/25 13:15 03/11/25 13:15 03/11/25 13:15
I&O
03/10/25 03/11/25 03/12/25
06:59 06:59 06:59
Intake Total 870 / 870
Output Total 600 / 600
Balance 270 / 270
--- NOTE | 2025-03-11 14:02 | PTCARENOTE ---
pt returned from OR. pt having some bladder spams. ihnes irrigated for pink clear. pain meds given as ordered.
[2025-03-11 16:41] LABS: Glucose - Point of Care 129 mg/dl (70-99)
[2025-03-11 20:48] LABS: Blood Urea Nitrogen 76 mg/dl (9-20); Calcium 8.6 mg/dl (8.4-10.2); Carbon Dioxide 21 mmol/L (22-30); Chloride 107 mmol/L (98-107); Estimated Creatinine Clearance 14 ml/min; Glucose 130 mg/dl (70-99); Potassium 6.2 mmol/L (3.5-5.1); Sodium 137 mmol/L (135-145); eGFR 8.68
[2025-03-11] MEDS: DEXTROSE 50% SYRINGE 25 GRAMS IV (21:30)
[2025-03-11] MEDS: NOVOLIN R 0.1 UNITS IV (21:31)
[2025-03-11] MEDS: APRESOLINE 5 MG IV (21:32)
[2025-03-11] MEDS: LOKELMA 10 GRAM PO (21:39)
[2025-03-11 21:51] LABS: Glucose - Point of Care 119 mg/dl (70-99)
[2025-03-11 22:40] LABS: Glucose - Point of Care 139 mg/dl (70-99)
[2025-03-11 23:52] LABS: Glucose - Point of Care 109 mg/dl (70-99)
--- NOTE | 2025-03-11 23:58 | PTCARENOTE ---
Assumed care for patient overnight. K 6.2. Hyperkalemia protocol initiated blood sugar checked pre administration of insulin and dextrose per order see MAR. Bosch w/ blood tinged urine in the bag, hand irrigated w/o issue. Room air, 99%. NSR on the
monitor. IVF cont. Able to make needs known, call weinstein within reach.
[2025-03-12] VITALS (12 sets, daily range): BP systolic 122–165; BP diastolic 66–110; BMI 32.1
[2025-03-12 00:24] LABS: Blood Urea Nitrogen 72 mg/dl (9-20); Calcium 8.1 mg/dl (8.4-10.2); Carbon Dioxide 20 mmol/L (22-30); Chloride 109 mmol/L (98-107); Estimated Creatinine Clearance 15 ml/min; Glucose 115 mg/dl (70-99); Potassium 5.1 mmol/L (3.5-5.1); Sodium 138 mmol/L (135-145); eGFR 9.73
[2025-03-12 01:49] LABS: Glucose - Point of Care 95 mg/dl (70-99)
[2025-03-12 03:46] LABS: Glucose - Point of Care 82 mg/dl (70-99)
[2025-03-12 04:14] LABS: Hematocrit 41.2 % (39.0-52.0); Hemoglobin 13.3 g/dL (13.0-18.0); Mean Corp Hgb Conc. 32.3 g/dL (33.0-37.0); Mean Corpuscular Volume 87.3 fL (80.0-94.0); Nucleated Red Blood Cells % 0 % (-); Platelet Count 154 10^3/uL (130-400); Red Cell Dist. Width 13.5 % (11.5-14.5)
[2025-03-12 04:24] LABS: ALT (SGPT) 13 U/L (0-50); AST (SGOT) 10 U/L (17-59); Albumin 3.2 g/dl (3.5-5.0); Alkaline Phosphatase 56 U/L (38-126); Blood Urea Nitrogen 68 mg/dl (9-20); Calcium 8.4 mg/dl (8.4-10.2); Carbon Dioxide 22 mmol/L (22-30); Chloride 110 mmol/L (98-107); Estimated Creatinine Clearance 16 ml/min; Glucose 84 mg/dl (70-99); Potassium 5.1 mmol/L (3.5-5.1); Sodium 139 mmol/L (135-145); Total Protein 5.9 g/dl (6.3-8.2); eGFR 10.80
[2025-03-12] MEDS: LOKELMA 10 GRAM PO ×2 (05:28→16:26)
--- NOTE | 2025-03-12 07:03 | W.PN.URO.CBU ---
Today's Communication / Plan
-
continue stents/hines and trend cr level
Assessment / Plan
-
ARF with period of anuria
bilateral ureteral stones s/p stents
TODAY- PT AND REPORT THAT HIS PRIMARY HAD REC THAT HE SEE OUTPT NEPHROLOGY SOME TIME AGO FOR KIDEY DYSFUNCTION- BUT HE DID NOT GO- so ? what baseline renal function was
urologically- stents in place- until cr nadirs- would leave hines to maximize decompression
start flomax
eventual outpt f/u for discussion of ureteroscopy for stone removal
Diagnosis
-
Date of Service: March 12, 2025
-
Patient Diagnosis:
bilateral ureteral stones
ARF
Post Op Day:
cysto/bilateral stents 03/11
Subjective
-
pt feels better
UO increasing- but not the expected post ob diuresis
cr only down to 5
urine clearing
Objective
-
Vital Signs
Temp Pulse Resp BP Pulse Ox
97.7 F 59 17 136/85 99
03/12/25 03:26 03/12/25 06:06 03/12/25 06:06 03/12/25 06:06 03/12/25 06:06
Intake and Output
03/11/25 03/12/25 03/13/25
06:59 06:59 06:59
Intake Total 1829
Output Total 2700 / 2700
Balance -870 / -870
Intake:
IV fluids (Total) 1829
Bicarb infusion 70 / 70
Output:
Urine, Hines 2700 / 2700
Laboratory Results
03/12/25 03:35
03/12/25 03:35
Review of Systems
-
Constitutional: Fatigue
Respiratory: No Symptoms
Cardiac: No Symptoms
Abdomen/GI: No Symptoms
: Other (flora jesus)
Physical Exam
-
General - no acute distress
Abdomen - soft, non-tender
Genitalia - hines
[2025-03-12 08:36] LABS: Glucose - Point of Care 87 mg/dl (70-99)
[2025-03-12] MEDS: FLOMAX 0.4 MG PO (08:50)
[2025-03-12] MEDS: VITAMIN D3 (cholecalciferol) 25 MCG PO (08:50)
[2025-03-12] MEDS: STERILE WATER FOR INJECTION 10 ML IV (09:27)
[2025-03-12] MEDS: ROCEPHIN 1000 MG IV (09:27)
[2025-03-12 11:48] LABS: Glucose - Point of Care 102 mg/dl (70-99)
[2025-03-12] MEDS: SODIUM BICARBONATE 1075 MEQ IV (11:51)
--- NOTE | 2025-03-12 13:09 | W.PN.HOSP.TC ---
Today's Communication/Plan
-
Monitor vital signs and see plan
Monitor renal function closely
Maintain Hines
Creatinine slowly improving
Assessment / Plan
Assessment / Plan
General: No Apparent Distress and Comfortable
HEENT: NormoCephalic and Anicteric
Respiratory: Clear and Non Labored Respirations
Cardiac: S1/S2 and Regular Rhythm
GI: Soft, Non Tender and Non Distended
Genito-urinary: + hines
Neuro: Awake, Alert, Oriented and AO x 3
Psych: Calm and Intact Judgment/Insight
Acute kidney injury 2/2 obstructing renal stone
Admission creatinine 7, peaked 8's
Metabolic acidosis secondary to acute kidney injury with hyperkalemia. improving. DC further bicarb drip.
Unknown baseline if has CKD
Nephrology following
CT abdomen/pelvics with renal stone. Status post bilateral ureteral stone status post stents. Urology following
Maintain Hines
Now with some urine output, urinalysis consistent with pyuria. Urine culture pending. cw ceftriaxone pending urine culture given perinephric stranding on imaging
Renal ultrasound with small right nephrolithiasis, intrarenal
History of diabetes mellitus
Hold Farxiga
A1c 6.8, Accu-Chek, sliding scale
Hypertension, no prior history
Hydralazine as needed, monitor
If blood pressure high persistently then will start standing BP med
Thrombocytopenia
Does appear to have history of it
Monitor
DVT prophylaxis
SCDs
Full code
I spent a total of 52 minutes with the patient or on the floor. More than 50% of this time involved counseling and coordination of care.
Anticipated Discharge: 24 - 48 hours
Subjective/Interval History
-
Date of Service: March 12, 2025
Denies pain
Objective Data
-
Labs:
Laboratory Results
03/12/25
03:35
WBC 8.0
Hgb 13.3
Hct 41.2
Plt Count 154 D
Sodium 139
Potassium 5.1
Chloride 110 H
Carbon Dioxide 22
BUN 68 H
Creatinine 5.5 H*
Glucose 84
Calcium 8.4
Total Bilirubin 0.6
AST 10 L
ALT 13
Alkaline Phosphatase 56
Vital Signs:
Vital Signs
Temp Pulse Resp BP Pulse Ox
98.4 F 78 17 158/90 95
03/12/25 11:58 03/12/25 10:01 03/12/25 10:01 03/12/25 10:01 03/12/25 10:01
I&O
03/11/25 03/12/25 03/13/25
06:59 06:59 06:59
Intake Total 2790 / 2790
Output Total 2900 / 2900
Balance -110 / -110
--- NOTE | 2025-03-12 13:31 | W.PN.NEPH.PH ---
Today's Communication / Plan
-
follow BMP
Assessment/Plan
-
Assessment
BRITTANY
Bilateral obstructive uropathy
Nephrolithiasis
Metabolic acidosis
Hyperkalemia
Diabetes mellitus type 2
Plan
IV fluids
Follow BMP
Discussed with patient
-
-
Date of Service: March 12, 2025
CC / HPI / ROS
-
Chief Complaint:
BRITTANY
History of Present Illness:
BRITTANY/Cr down to 5.5
s/p bilateral ureteral stents 03/11/25
BP high
K better 5.1
Review of Systems:
no SOB/CP
Labs
-
Labs:
WBC 8.0 10^3/uL (4.8-10.8) 03/12/25 03:35
RBC 4.72 10^6/uL (4.70-6.10) 03/12/25 03:35
Hgb 13.3 g/dL (13.0-18.0) 03/12/25 03:35
Hct 41.2 % (39.0-52.0) 03/12/25 03:35
Plt Count 154 10^3/uL (130-400) D 03/12/25 03:35
Sodium 139 mmol/L (135-145) 03/12/25 03:35
Potassium 5.1 mmol/L (3.5-5.1) 03/12/25 03:35
Chloride 110 mmol/L (98-107) H 03/12/25 03:35
Carbon Dioxide 22 mmol/L (22-30) 03/12/25 03:35
BUN 68 mg/dl (9-20) H 03/12/25 03:35
Creatinine 5.5 mg/dL (0.7-1.3) H* 03/12/25 03:35
eGFR 10.80 03/12/25 03:35
Glucose 84 mg/dl (70-99) 03/12/25 03:35
Calcium 8.4 mg/dl (8.4-10.2) 03/12/25 03:35
Albumin 3.2 g/dl (3.5-5.0) L 03/12/25 03:35
Physical Exam
-
Vital Signs:
Vital Signs
Temp Pulse Resp BP Pulse Ox
98.4 F 78 17 158/90 95
03/12/25 11:58 03/12/25 10:01 03/12/25 10:01 03/12/25 10:01 03/12/25 10:01
Cardiovascular:: Regular rate and rhythm
Respiratory:: Bilateral: Coarse
Lung Excursion:: Normal
Abdomen:: Nontender and Soft
Bowel Sounds:: Normal
Extremity Edema:: None: Bilateral:
--- NOTE | 2025-03-12 15:23 | CM ---
Bosch, monitor renal function closely, Following BMP, Cr improving slowly, IV/Rocephin. Discharge POC: Anticipate home with no needs. Observe for any HH RN needs.
[2025-03-12] MEDS: LOKELMA PO (16:23)
[2025-03-12] MEDS: NSS 1000 IV (16:26)
[2025-03-12 16:46] LABS: Glucose - Point of Care 82 mg/dl (70-99)
[2025-03-12 23:00] LABS: Glucose - Point of Care 97 mg/dl (70-99)
[2025-03-13] VITALS (9 sets, daily range): BP systolic 124–168; BP diastolic 73–133; BMI 32.0
--- NOTE | 2025-03-13 00:13 | PTCARENOTE ---
assumed care of patient. pt is AAOx3, able to make needs known. VSS. 93% RA. hines intact draining karlie urine. hines order noted to remove in AM, per urology notes, 'leave hines to maximize decompression'. will leave hines in and relay in the
morning. hines causing some tenderness but manageable per patient. hines manually irrigated per order every 6 hours, no clots noted. IV fluids infusing without issues. at bedside. care ongoing.
--- NOTE | 2025-03-13 03:09 | PTCARENOTE ---
pt oxygen dropping to 70s on RA while sleeping. 2L NC placed, now 98%.
[2025-03-13] MEDS: NSS 1000 IV (05:35)
[2025-03-13] MEDS: LOKELMA 10 GRAM PO ×2 (05:35→14:52)
[2025-03-13 05:55] LABS: Hematocrit 39.6 % (39.0-52.0); Hemoglobin 12.8 g/dL (13.0-18.0); Mean Corp Hgb Conc. 32.3 g/dL (33.0-37.0); Mean Corpuscular Volume 87.0 fL (80.0-94.0); Nucleated Red Blood Cells % 0 % (-); Platelet Count 133 10^3/uL (130-400); Red Cell Dist. Width 13.6 % (11.5-14.5)
[2025-03-13 06:15] LABS: ALT (SGPT) 12 U/L (0-50); AST (SGOT) 11 U/L (17-59); Albumin 3.2 g/dl (3.5-5.0); Alkaline Phosphatase 50 U/L (38-126); Blood Urea Nitrogen 53 mg/dl (9-20); Calcium 8.2 mg/dl (8.4-10.2); Carbon Dioxide 23 mmol/L (22-30); Chloride 113 mmol/L (98-107); Estimated Creatinine Clearance 28 ml/min; Glucose 93 mg/dl (70-99); Potassium 4.9 mmol/L (3.5-5.1); Sodium 140 mmol/L (135-145); Total Protein 5.7 g/dl (6.3-8.2); eGFR 20.68
[2025-03-13 07:46] LABS: Glucose - Point of Care 98 mg/dl (70-99)
[2025-03-13] MEDS: FLOMAX 0.4 MG PO (08:00)
[2025-03-13] MEDS: VITAMIN D3 (cholecalciferol) 25 MCG PO (08:00)
--- NOTE | 2025-03-13 08:17 | W.PN.URO.CBU ---
Today's Communication / Plan
-
continue flomax
discontinue hines when cr down to around 2
outpt f/u
Assessment / Plan
-
ARF with period of anuria
bilateral ureteral stones s/p stents
slow improvement in cr level
would like hines in place to promote renal drainage- when cr down to around 2- may discontinue for voiding trial
continue flomax
have pt call dr rosen at time of discharge to arrange outpt f/u
Diagnosis
-
Date of Service: March 13, 2025
-
Patient Diagnosis:
bilateral ureteral stones
ARF
Post Op Day:
cysto/bilateral stents 03/11
Subjective
-
pt feels better
urine clear
cr down to 3
Objective
-
Vital Signs
Temp Pulse Resp BP Pulse Ox
98.2 F 84 15 166/93 94
03/13/25 07:36 03/13/25 06:06 03/13/25 06:06 03/13/25 06:06 03/13/25 06:06
Intake and Output
03/12/25 03/13/25 03/14/25
06:59 06:59 06:59
Intake Total 2790 / 2790 1460 / 1460
Output Total 2900 / 2900 2150 / 2150
Balance -110 / -110 -690 / -690
Intake:
Oral fluids 320 / 320
IV fluids (Total) 2790 / 2790 940 / 940
Bicarb infusion 70 / 70
Hines intermittent irrigation 200 / 200
Output:
Urine, Hines 2900 / 2900 2150 / 2150
Laboratory Results
03/13/25 05:43
03/13/25 05:43
Review of Systems
-
Constitutional: Fatigue
Respiratory: No Symptoms
Cardiac: No Symptoms
Abdomen/GI: No Symptoms
Physical Exam
-
General - no acute distress
--- NOTE | 2025-03-13 09:38 | PTCARENOTE ---
Patient received from night nurse. Patient resting comfortably in bed. AAO, VSS. stayed overnight. No events noted overnight. Complaints of pain and discomfort in penile area due to hines. Hines to remain in under urology determination.
No testing schedule at this time. Call weinstein in reach.
[2025-03-13] MEDS: STERILE WATER FOR INJECTION 10 ML IV (09:52)
[2025-03-13] MEDS: ROCEPHIN 1000 MG IV (09:52)
--- NOTE | 2025-03-13 11:26 | CM ---
F/U: Patient is likely to remove his Bosch so will discharge over the weekend. Patient has no VN needs nor PT. IMM completed PLAN: Home No Needs.
[2025-03-13 11:47] LABS: Glucose - Point of Care 106 mg/dl (70-99)
--- NOTE | 2025-03-13 12:43 | W.PN.NEPH.PH ---
Today's Communication / Plan
-
off IVF and follow labs
Assessment/Plan
-
Assessment
BRITTANY
CKD [id number] 2
Bilateral obstructive uropathy
Nephrolithiasis
Metabolic acidosis
Hyperkalemia
Diabetes mellitus type 2
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
Plan
cr improving to 3.2
will attempt to wean off IV fluids
hines ou t when cr at baseline per
Bp stable
Follow BMP
Discussed with patient and family in detail
-
-
Date of Service: March 13, 2025
CC / HPI / ROS
-
Chief Complaint:
BRITTANY
History of Present Illness:
BRITTANY/Cr down to3.2
s/p bilateral ureteral stents 03/11/25
BP stable
K better 4.8
Review of Systems:
no SOB/CP
feels well
Labs
-
Labs:
WBC 5.7 10^3/uL (4.8-10.8) 03/13/25 05:43
RBC 4.55 10^6/uL (4.70-6.10) L 03/13/25 05:43
Hgb 12.8 g/dL (13.0-18.0) L 03/13/25 05:43
Hct 39.6 % (39.0-52.0) 03/13/25 05:43
Plt Count 133 10^3/uL (130-400) 03/13/25 05:43
Sodium 140 mmol/L (135-145) 03/13/25 05:43
Potassium 4.9 mmol/L (3.5-5.1) 03/13/25 05:43
Chloride 113 mmol/L (98-107) H 03/13/25 05:43
Carbon Dioxide 23 mmol/L (22-30) 03/13/25 05:43
BUN 53 mg/dl (9-20) H 03/13/25 05:43
Creatinine 3.2 mg/dL (0.7-1.3) H 03/13/25 05:43
eGFR 20.68 03/13/25 05:43
Glucose 93 mg/dl (70-99) 03/13/25 05:43
Calcium 8.2 mg/dl (8.4-10.2) L 03/13/25 05:43
Albumin 3.2 g/dl (3.5-5.0) L 03/13/25 05:43
Physical Exam
-
Vital Signs:
Vital Signs
Temp Pulse Resp BP Pulse Ox
98.3 F 84 15 166/93 94
03/13/25 11:47 03/13/25 06:06 03/13/25 06:06 03/13/25 06:06 03/13/25 06:06
Cardiovascular:: Regular rate and rhythm
Respiratory:: Bilateral: CTA
Lung Excursion:: Normal
Abdomen:: Nontender and Soft
Bowel Sounds:: Normal
Extremity Edema:: None: Bilateral:
Hines Catheter: Yes
--- NOTE | 2025-03-13 13:53 | W.PN.HOSP.TC ---
Today's Communication/Plan
-
monitor vitals
See plan
Monitor renal function
Maintain Hines for now per urology
Transfer out of IMU
Assessment / Plan
Assessment / Plan
General: No Apparent Distress and Comfortable
HEENT: NormoCephalic and Anicteric
Respiratory: Clear and Non Labored Respirations
Cardiac: S1/S2 and Regular Rhythm
GI: Soft, Non Tender and Non Distended
Genito-urinary: + hnies
Neuro: Awake, Alert, Oriented and AO x 3
Psych: Calm and Intact Judgment/Insight
Acute kidney injury 2/2 obstructing renal stone
Admission creatinine 7, peaked 8's
Metabolic acidosis secondary to acute kidney injury with hyperkalemia. improving. DC further bicarb drip.
Unknown baseline if has CKD
Nephrology following
CT abdomen/pelvics with renal stone. Status post bilateral ureteral stone status post stents. Urology following
Maintain Hines; per urology discontinue Hines when creatinine around 2
Now with some urine output, urinalysis consistent with pyuria. Urine culture pending. cw ceftriaxone given perinephric stranding on imaging and recent procedure
Renal ultrasound with small right nephrolithiasis, intrarenal
History of diabetes mellitus
Hold Farxiga
A1c 6.8, Accu-Chek, sliding scale
Hypertension, no prior history
Hydralazine as needed, monitor
If blood pressure high persistently then will start standing BP med
Thrombocytopenia
Does appear to have history of it
Monitor
DVT prophylaxis
SCDs
Full code
Anticipated Discharge: 24 - 48 hours
Subjective/Interval History
-
Date of Service: March 13, 2025
Denies pain
Objective Data
-
Labs:
Laboratory Results
03/13/25
05:43
WBC 5.7
Hgb 12.8 L
Hct 39.6
Plt Count 133
Sodium 140
Potassium 4.9
Chloride 113 H
Carbon Dioxide 23
BUN 53 H
Creatinine 3.2 H
Glucose 93
Calcium 8.2 L
Total Bilirubin 0.6
AST 11 L
ALT 12
Alkaline Phosphatase 50
Vital Signs:
Vital Signs
Temp Pulse Resp BP Pulse Ox
98.3 F 84 15 166/93 94
03/13/25 11:47 03/13/25 06:06 03/13/25 06:06 03/13/25 06:06 03/13/25 06:06
I&O
03/12/25 03/13/25 03/14/25
06:59 06:59 06:59
Intake Total 2790 / 2790 1460 / 1460
Output Total 2900 / 2900 2150 / 2150
Balance -110 / -110 -690 / -690
[2025-03-13 17:40] LABS: Glucose - Point of Care 107 mg/dl (70-99)
[2025-03-13] MEDS: HEPARIN 5000 UNITS SC (20:31)
[2025-03-14] VITALS (8 sets, daily range): BP systolic 134–182; BP diastolic 84–96; BMI 31.3
--- NOTE | 2025-03-14 05:20 | PTCARENOTE ---
assumed care of patient. pt is m/s level of care. able to make needs known. VSS. 94% RA. able to walk into bathroom with standby assist. hines intact draining karlie urine. care ongoing.
[2025-03-14 05:39] LABS: Glucose - Point of Care 94 mg/dl (70-99)
[2025-03-14 05:45] LABS: Hematocrit 39.0 % (39.0-52.0); Hemoglobin 12.5 g/dL (13.0-18.0); Mean Corp Hgb Conc. 32.1 g/dL (33.0-37.0); Mean Corpuscular Volume 88.2 fL (80.0-94.0); Nucleated Red Blood Cells % 0 % (-); Platelet Count 147 10^3/uL (130-400); Red Cell Dist. Width 13.4 % (11.5-14.5)
[2025-03-14 06:26] LABS: ALT (SGPT) 12 U/L (0-50); AST (SGOT) 12 U/L (17-59); Albumin 3.3 g/dl (3.5-5.0); Alkaline Phosphatase 51 U/L (38-126); Blood Urea Nitrogen 43 mg/dl (9-20); Calcium 8.5 mg/dl (8.4-10.2); Carbon Dioxide 28 mmol/L (22-30); Chloride 109 mmol/L (98-107); Estimated Creatinine Clearance 36 ml/min; Glucose 101 mg/dl (70-99); Potassium 5.1 mmol/L (3.5-5.1); Sodium 139 mmol/L (135-145); Total Protein 5.7 g/dl (6.3-8.2); eGFR 27.82
[2025-03-14 07:27] LABS: Glucose - Point of Care 91 mg/dl (70-99)
[2025-03-14] MEDS: LOW STRENGTH ASPIRIN 81 MG PO (08:11)
[2025-03-14] MEDS: FLOMAX 0.4 MG PO (08:11)
[2025-03-14] MEDS: VITAMIN D3 (cholecalciferol) 25 MCG PO (08:11)
[2025-03-14] MEDS: HEPARIN 5000 UNITS SC ×2 (08:11→21:43)
--- NOTE | 2025-03-14 09:34 | PTCARENOTE ---
Patient received from manager shift. Patient resting comfortably in bed. WILLAO, VSMitch. stayed overnight. No events noted overnight. Complaints of pain and discomfort in penile area due to hines. Hines likely to be D/C'd pending AM lab work and
creatinine closer to 2.0. No testing schedule at this time. Call weinstein in reach.
[2025-03-14] MEDS: STERILE WATER FOR INJECTION 10 ML IV (10:45)
[2025-03-14] MEDS: ROCEPHIN 1000 MG IV (10:46)
[2025-03-14 12:10] LABS: Glucose - Point of Care 99 mg/dl (70-99)
[2025-03-14] MEDS: NORVASC 5 MG PO (12:11)
--- NOTE | 2025-03-14 12:25 | W.PN.NEPH.PH ---
Today's Communication / Plan
-
see plan
Assessment/Plan
-
Assessment
BRITTANY
CKD [id number] 2
Bilateral obstructive uropathy
Nephrolithiasis
Metabolic acidosis
Hyperkalemia
Diabetes mellitus type 2
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
Plan
cr improving to 2.5 off IVF
ok to attempt VT today
Bp increasing trend , ok for amlodipine
Follow BMP
if renal function remains stable ok to d/c tomorrow
BMP in 1week
follow and nephro
Discussed with patient and family in detail
d/w primary and nursing
-
-
Date of Service: March 14, 2025
CC / HPI / ROS
-
Chief Complaint:
BRITTANY
History of Present Illness:
BRITTANY/Cr down to 2.5
s/p bilateral ureteral stents 03/11/25
BP increasing trend
K 5.1
Review of Systems:
no SOB/CP
feels well
Labs
-
Labs:
WBC 5.6 10^3/uL (4.8-10.8) 03/14/25 05:22
RBC 4.42 10^6/uL (4.70-6.10) L 03/14/25 05:22
Hgb 12.5 g/dL (13.0-18.0) L 03/14/25 05:22
Hct 39.0 % (39.0-52.0) 03/14/25 05:22
Plt Count 147 10^3/uL (130-400) 03/14/25 05:22
Sodium 139 mmol/L (135-145) 03/14/25 05:22
Potassium 5.1 mmol/L (3.5-5.1) 03/14/25 05:22
Chloride 109 mmol/L (98-107) H 03/14/25 05:22
Carbon Dioxide 28 mmol/L (22-30) 03/14/25 05:22
BUN 43 mg/dl (9-20) H 03/14/25 05:22
Creatinine 2.5 mg/dL (0.7-1.3) H 03/14/25 05:22
eGFR 27.82 03/14/25 05:22
Glucose 101 mg/dl (70-99) H 03/14/25 05:22
Calcium 8.5 mg/dl (8.4-10.2) 03/14/25 05:22
Albumin 3.3 g/dl (3.5-5.0) L 03/14/25 05:22
Physical Exam
-
Vital Signs:
Vital Signs
Temp Pulse Resp BP Pulse Ox
97.9 F 69 16 167/96 95
03/14/25 11:20 03/14/25 12:11 03/14/25 07:09 03/14/25 12:11 03/14/25 11:30
Cardiovascular:: Regular rate and rhythm
Respiratory:: Bilateral: CTA
Lung Excursion:: Normal
Abdomen:: Nontender and Soft
Bowel Sounds:: Normal
Extremity Edema:: None: Bilateral:
Bosch Catheter: Yes
--- NOTE | 2025-03-14 13:02 | W.PN.HOSP.TC ---
Today's Communication/Plan
-
Monitor vital signs and see plan
DC further antibiotics
Discontinue Hines catheter, voiding trial
Start amlodipine
Discussed with nephrology
Assessment / Plan
Assessment / Plan
General: No Apparent Distress and Comfortable
HEENT: NormoCephalic and Anicteric
Respiratory: Clear and Non Labored Respirations
Cardiac: S1/S2 and Regular Rhythm
GI: Soft, Non Tender and Non Distended
Genito-urinary: + hines
Neuro: Awake, Alert, Oriented and AO x 3
Psych: Calm and Intact Judgment/Insight
Acute kidney injury 2/2 obstructing renal stone
Admission creatinine 7, peaked 8's
Metabolic acidosis secondary to acute kidney injury with hyperkalemia. Now resolved. Off fluids
Unknown baseline but appears to have CKD
Nephrology following
CT abdomen/pelvics with renal stone. Status post bilateral ureteral stone status post stents. Urology following
Maintain Hines; per urology discontinue Hines when creatinine around 2. Creatinine 2.5 today. Discussed with nephrology and discontinued Hines catheter today. Voiding trial
Urine culture no growth. DC further antibiotics. Appears perinephric stranding likely was secondary to obstruction.
Renal ultrasound with small right nephrolithiasis, intrarenal
History of diabetes mellitus
Hold Farxiga
A1c 6.8, Accu-Chek, sliding scale
Hypertension, no prior history
Hydralazine as needed, monitor
Blood pressure persistently high, start amlodipine
Thrombocytopenia
Does appear to have history of it
Monitor
DVT prophylaxis
SCDs
Full code
Anticipated Discharge: Within 24 hours
Subjective/Interval History
-
Date of Service: March 14, 2025
Denies nausea
Objective Data
-
Labs:
Laboratory Results
03/14/25
05:22
WBC 5.6
Hgb 12.5 L
Hct 39.0
Plt Count 147
Sodium 139
Potassium 5.1
Chloride 109 H
Carbon Dioxide 28
BUN 43 H
Creatinine 2.5 H
Glucose 101 H
Calcium 8.5
Total Bilirubin 0.6
AST 12 L
ALT 12
Alkaline Phosphatase 51
Vital Signs:
Vital Signs
Temp Pulse Resp BP Pulse Ox
97.9 F 69 16 167/96 95
03/14/25 11:20 03/14/25 12:11 03/14/25 07:09 03/14/25 12:11 03/14/25 11:30
I&O
03/13/25 03/14/25 03/15/25
06:59 06:59 06:59
Intake Total 1460 / 1460 700 / 700
Output Total 2150 / 2150 2300 / 2300
Balance -690 / -690 -1600 / -1600
--- NOTE | 2025-03-14 15:39 | PTCARENOTE ---
Report called to Liliana [facility] [address] [place].
[2025-03-14 17:14] LABS: Glucose - Point of Care 84 mg/dl (70-99)
[2025-03-14] MEDS: APRESOLINE 5 MG IV (18:40)
[2025-03-14 20:54] LABS: Glucose - Point of Care 112 mg/dl (70-99)
[2025-03-15 06:51] VITALS: BMI 31.4
[2025-03-15 07:46] VITALS: BP 139/79
[2025-03-15 08:08] LABS: Hematocrit 42.5 % (39.0-52.0); Hemoglobin 13.5 g/dL (13.0-18.0); Mean Corp Hgb Conc. 31.8 g/dL (33.0-37.0); Mean Corpuscular Volume 90.8 fL (80.0-94.0); Nucleated Red Blood Cells % 0 % (-); Platelet Count 152 10^3/uL (130-400); Red Cell Dist. Width 13.4 % (11.5-14.5)
[2025-03-15 08:31] LABS: ALT (SGPT) 15 U/L (0-50); AST (SGOT) 16 U/L (17-59); Albumin 3.8 g/dl (3.5-5.0); Alkaline Phosphatase 63 U/L (38-126); Blood Urea Nitrogen 37 mg/dl (9-20); Calcium 9.0 mg/dl (8.4-10.2); Carbon Dioxide 28 mmol/L (22-30); Chloride 104 mmol/L (98-107); Estimated Creatinine Clearance 39 ml/min; Glucose 104 mg/dl (70-99); Potassium 5.8 mmol/L (3.5-5.1); Sodium 140 mmol/L (135-145); Total Protein 6.4 g/dl (6.3-8.2); eGFR 30.74
[2025-03-15] MEDS: LOW STRENGTH ASPIRIN 81 MG PO (08:44)
[2025-03-15] MEDS: FLOMAX 0.4 MG PO (08:44)
[2025-03-15] MEDS: VITAMIN D3 (cholecalciferol) 25 MCG PO (08:44)
[2025-03-15] MEDS: NORVASC 5 MG PO (08:44)
[2025-03-15] MEDS: HEPARIN 5000 UNITS SC (08:44)
[2025-03-15 09:10] LABS: Glucose - Point of Care 130 mg/dl (70-99)
[2025-03-15] MEDS: LOKELMA 10 GRAM PO (09:55)
--- NOTE | 2025-03-15 11:15 | W.PN.HOSP.TC ---
Addendum entered and electronically signed by Addi العلي MD 03/15/25 13:14:
Potassium is now 5. Repeat BMP in couple days with PCP. Discussed with nephrology
Time of discharge 38 minutes
Original Note:
Today's Communication/Plan
-
Monitor vital signs and see plan
Discussed with nephrology, repeat BMP later today and if potassium is better then likely discharge home
Lokelma
Monitor renal function
Assessment / Plan
Assessment / Plan
General: No Apparent Distress and Comfortable
HEENT: NormoCephalic and Anicteric
Respiratory: Clear and Non Labored Respirations
Cardiac: S1/S2 and Regular Rhythm
GI: Soft, Non Tender and Non Distended
Genito-urinary: + hines
Neuro: Awake, Alert, Oriented and AO x 3
Psych: Calm and Intact Judgment/Insight
Acute kidney injury 2/2 obstructing renal stone
Admission creatinine 7, peaked 8's
Metabolic acidosis secondary to acute kidney injury with hyperkalemia. Now resolved. Off fluids
Unknown baseline but appears to have CKD
Nephrology following
CT abdomen/pelvics with renal stone. Status post bilateral ureteral stone status post stents. Urology following
Hines DC'd 03/14, urinating well. Creatinine 2.3 today. Potassium 5.8. Lokelma. Discussed with nephrology. Repeat BMP later today and if potassium is better then we will discharge patient home with outpatient follow-up
Urine culture no growth. DC further antibiotics. Appears perinephric stranding likely was secondary to obstruction.
Renal ultrasound with small right nephrolithiasis, intrarenal
History of diabetes mellitus
Hold Farxiga
A1c 6.8, Accu-Chek, sliding scale
Hypertension, no prior history
Hydralazine as needed, monitor
Blood pressure persistently high, started amlodipine. Now improving
Thrombocytopenia
Does appear to have history of it
Monitor
DVT prophylaxis
SCDs
Full code
Anticipated Discharge: Today
Subjective/Interval History
-
Date of Service: March 15, 2025
denies pain
Objective Data
-
Labs:
Laboratory Results
03/15/25 03/15/25
07:14 12:00
WBC 5.0
Hgb 13.5
Hct 42.5
Plt Count 152
Sodium 140 Pending
Potassium 5.8 H Pending
Chloride 104 Pending
Carbon Dioxide 28 Pending
BUN 37 H Pending
Creatinine 2.3 H Pending
Glucose 104 H Pending
Calcium 9.0 Pending
Total Bilirubin 0.5
AST 16 L
ALT 15
Alkaline Phosphatase 63
Vital Signs:
Vital Signs
Temp Pulse Resp BP Pulse Ox
97.7 F 72 20 139/79 97
03/15/25 07:46 03/15/25 08:44 03/15/25 07:46 03/15/25 08:44 03/15/25 07:46
I&O
03/14/25 03/15/25 03/16/25
06:59 06:59 06:59
Intake Total 700 / 700 480 / 480
Output Total 2300 / 2300 200 / 200
Balance -1600 / -1600 280 / 280
[2025-03-15 12:23] LABS: Blood Urea Nitrogen 39 mg/dl (9-20); Calcium 8.7 mg/dl (8.4-10.2); Carbon Dioxide 25 mmol/L (22-30); Chloride 106 mmol/L (98-107); Estimated Creatinine Clearance 41 ml/min; Glucose 98 mg/dl (70-99); Potassium 5.0 mmol/L (3.5-5.1); Sodium 139 mmol/L (135-145); eGFR 32.43
[2025-03-15 13:09] LABS: Glucose - Point of Care 90 mg/dl (70-99)
--- NOTE | 2025-03-15 13:52 | CM ---
MD entered order for discharge.
Pt able to void . Offered VN he declined need.
Dgt Shayla will drive him home .
IMM reviewed signed on chart.
PLAN Home no needs
[2025-03-15 13:55] VITALS: BP 111/78
--- NOTE | 2025-03-15 14:13 | W.DCSUMMARY ---
Discharge Summary
Discharge Data
Date of Admission: 03/10/25
Date of Discharge: 03/15/25
-
Pending Results: No
Hospital Course
64-year-old male with past medical history of suspected CKD, diabetes mellitus came to the hospital with anuria along with abdominal discomfort. Upon labs patient had acute kidney injury which was likely thought was secondary to obstructing renal
stone. CT scan was done which showed bilateral renal stone. For any area patient was also seen by nephrology throughout hospitalization. Initially patient Bosch catheter due to urinary retention and anuria. Patient was taken to the OR by urology
and got bilateral stent placement. Patient creatinine continued to improve over time after stent placement. Patient discharge creatinine was 2.2 which appeared to be close to his baseline. Patient was instructed to follow-up with nephrology
closely outpatient. Urology also recommended patient to follow-up with them closely outpatient. Patient did had some hyperkalemia which continued to improve over time with Lokelma and his improving renal function. On discharge he will instructed
to get BMP in 2 days with his primary care provider. He was also hypertensive in the hospital and was started on amlodipine. Given his elevated creatinine his Farxiga was held and he was instructed to follow-up closely with his PCP when to renew.
Once his symptoms continue to improve, he was then discharged home with instructions to follow-up with all his physicians outpatient.
Discharge Plan
-
Patient Disposition: Home (Routine Discharge)
Discharge Diagnosis/Procedures: Acute kidney injury 2/2 obstructing renal stone
Urinary retention
Acute kidney injury on suspected chronic kidney disease
Hyperkalemia
Diabetes mellitus
New onset hypertension
Condition: Fair
Diet: As tolerated
Additional Diets: Low potassium diet
Activity: As tolerated
Driving Restrictions: As prior to admission
Bathing Restrictions: None
Blood Work: BMP on Sunday with primary care provider
Referrals:
Alexx Ramirez Jr., MD [Active, Urology] - in one to two weeks
Vaughn Eduardo MD [Family Provider, Family Practice] - in less than 1 week
Madonna Diego MD [Active, Nephrology] - in two weeks
Prescriptions:
New
amlodipine 5 mg Tablet
5 mg PO DAILY Qty: 30 0RF
tamsulosin 0.4 mg Capsule
0.4 mg PO DAILY Qty: 30 0RF
Continued
aspirin 81 mg Tablet,Delayed Release (Dr/Ec)
81 mg PO WETHFRSA
vitamin E 268 mg (400 unit) Capsule
268 mg PO DAILY
cholecalciferol (vitamin D3) [Vitamin D3] 25 mcg (1,000 unit) Tablet
25 mcg PO DAILY
Held
dapagliflozin propanediol [Farxiga] 5 mg Tablet
5 mg PO DAILY
Hold Instructions: Restart when okay with your primary care provider
Discontinued
ibuprofen [Motrin] 400 mg Tablet
400 mg PO DAILYPRN PRN (Reason: mild pain)
Discharge Orders:
Discharge Patient (As Directed); Ordered 03/15/25
Ordered By: Addi العلي
Discharge Date and Time
Discharge Date/Time: 03/15/25 14:08
Print Language: BRUNEIAN
== END 2025-03-15 14:08 | disposition home or self-care (01) | DRG 660 ==
LOC: 3 WEST ACU 18:49
PROVIDERS: Emergency Medicine; Physician Assistant Medical; Specialist; ADMITTING PHYSICIAN Internal Medicine; CONSULT PHYSICIAN Internal Medicine; CONSULT PHYSICIAN Specialist; EMERGENCY PHYSICIAN Emergency Medicine; FAMILY PHYSICIAN Family Medicine
PROC: 0T788DZ Dilation of Bilateral Ureters with Intraluminal Device, Via Natural or Artificial Opening Endoscopic (ICD-10-PCS; 2025-03-12)
DX: N17.9 Acute kidney failure, unspecified (principal); E87.20 Acidosis, unspecified; N13.2 Hydronephrosis with renal and ureteral calculous obstruction; E87.5 Hyperkalemia; E11.9 Type 2 diabetes mellitus without complications; I10 Essential (primary) hypertension; D69.6 Thrombocytopenia, unspecified; N40.0 Benign prostatic hyperplasia without lower urinary tract symptoms; Z79.84 Long term (current) use of oral hypoglycemic drugs; Z87.442 Personal history of urinary calculi; Z79.82 Long term (current) use of aspirin; Z11.52 Encounter for screening for COVID-19
CPT/HCPCS: 51702; 51798; 71046; 74176; 74420; 76000; 76775; 80048; 80053; 81003; 81015; 81099; 82550; 82570; 82962; 83036; 83690; 84300; 85025; 87086; 87502; 87811; 93005; 96361; 96365; 96366; 99285; C1758; J7030

== ENCOUNTER 2025-03-31 06:18 | Day surgery (SDC) | payer OTHER, MEDICARE, SELFPAY ==
[2025-03-31] VITALS (7 sets, daily range): BP systolic 108–159; BP diastolic 62–96; BMI 32.6
[2025-03-31] MEDS: NORMOSOL-R/PLASMALYTE-A 1000 IV (07:54)
[2025-03-31 10:30] LABS: Glucose - Point of Care 119 mg/dl (70-99)
[2025-03-31] MEDS: FLOMAX 0.4 MG PO (11:07)
== END 2025-03-31 11:59 | disposition home or self-care (01) ==
LOC: SDS 06:18
PROVIDERS: ATTENDING PHYSICIAN Specialist
DX: N20.1 Calculus of ureter (principal)
CPT/HCPCS: 52352; 52332; 74018; 76000; 82365; 82962